=== PATIENT | female | born 1975 | race Caucasian/White ===

== ENCOUNTER 2024-12-22 13:05 | Emergency (ER) | payer MEDICAID, SELFPAY ==
[2024-12-22 13:37] VITALS: BP 111/75; PULSE 123; RESP 18; TEMP 37.2; O2SAT 97; BMI 26.8
--- NOTE | 2024-12-22 13:55 | EDNOTE_ITS ---
Upper Respiratory Inf. RME/HPI General Chief Complaint: Flu Like Symptoms Stated Complaint: BODY ACHES AND FEVER Time Seen by Provider: 12/22/24 13:37 Source: patient Arrival date/time: 12/22/24 13:05 This is a 49-year-old female who presents to the emergency department with complaints of generalized bodyaches, fever for 3 days. Patient does report she also has a mild headache with frontal pressure. Patient did not attempt any interventions or take any OTC medications prior to ED visit. Patient denies any other associated symptoms or aggravating factors. No modifying factors, no radiation, no migration. Mode of arrival: ambulatory Limitations: no limitations Related Data Previous Rx's ?Medication ?Instructions ?Recorded benzonatate 100 mg capsule 100 mg PO QID PRN cough #20 caps 07/20/18 (Jose Mooney) fexofenadine 60 mg-pseudoephedrine 1 tab PO Q12H PRN n saundra congestion 07/20/18 ER 120 mg tablet,ext.release,12 hr #20 tabs (Hayley-D 12 Hour) ibuprofen 800 mg tablet 800 mg PO TID PRN pain #30 t abs 07/20/18 nitrofurantoin 100 mg PO BID #20 caps 07/20 monohydrate/macrocrystals 100 mg capsule (Macrobid) azithromycin 250 mg tablet See Rx Instructions PO .COM PLEX #6 01/16/19 tabs prednisone 20 mg tablet 20 mg PO BID #6 tabs 9 benzonatate 100 mg capsule 100 mg PO BID PRN cough #10 caps 06/14/19 (Jose Mooney) doxycycline hyclate 100 mg tablet 100 mg PO BID #14 ta bs 06/14/19 prednisone 20 mg tablet 20 mg PO BID #6 tabs 9 ibuprofen 800 mg tablet (IBU) 800 mg PO Q8H #20 tabs 0 12/22/24 ondansetron 4 mg disintegrating 4 mg PO Q8H 3 days #9 tabs 12/22/24 tablet oseltamivir 75 mg capsule (Tamiflu) 75 mg PO BID 5 day s #10 caps 12/22/24 Allergies Allergy/AdvReac Type Severity Reaction Status Date / Time No Known Allergies Allergy Verified 12/22/24 13:08 Review of Systems Review of Systems Systems Reviewed: All systems reviewed, normal except as documented Narrative Review of Systems: Gen: + fever, no chills, no weight loss, body aches, headache EYES: No discharge, no visual changes, no pain HEENT: No ear pain, no congestion, no sore throat PULM: No shortness of breath, +cough, no congestion CV: No chest pain, no dyspnea on exertion, no palpitations GI: No nausea, no vomiting, no diarrhea, no pain, no constipation : No frequency, no urgency,? no dysuria Musc/skel: No joint pain, no back pain Skin: No rash? ED Exam General Limitations: Present no limitations General appearance: Present alert and in no apparent distress Head Head exam: Present atraumatic Eye Eye exam: Present normal appearance, PERRL and EOMI ENT ENT exam: Present normal exam, normal oropharynx and mucous membranes moist Neck Neck exam: Present normal inspection, full ROM and trachea midline Chest Chest inspection: Present normal inspection and symmetric chest wall rise Respiratory Respiratory exam: Present normal lung sounds bilaterally Cardiovascular Cardiovascular exam: Present regular rate, normal rhythm and normal heart sounds Abdominal Exam Abdominal exam: Present soft and normal bowel sounds Extremities Exam Extremities exam: Present normal inspection and full ROM Back Exam Back exam: Present normal inspection and full ROM Neurological Exam Neurological exam: Present alert, oriented X3 and CN II-XII intact Psychiatric Psychiatric exam: Present normal affect and normal mood Skin Skin exam: Present warm, dry, intact and normal color Course Quality Measures none Orders Category Date Time Status Bedside COVID-19 Antigen Test NOW Care 12/22/24 13:50 Active Bedside Influenza A&B Antigen Test NOW Care 12/22/24 13:50 Completed Vital Signs Vital signs: Vital Signs Temperature 99 F 12/22/24 13:37 Pulse Rate 123 H 12/22/24 13:37 Respiratory Rate 18 12/22/24 13:37 Blood Pressure 111/75 12/22/24 13:37 Pulse Oximetry (%) 97 12/22/24 13:37 Oxygen Delivery Method Room Air 12/22/24 13:37 Upper Respiratory Infection MDM Narrative MDM Narrative:: 45-year-old healthy male + fever, cough, sore throat, malaise consistent with viral illness such as Influenza. Positive rapid influenza test in ER. not chronically ill or immunosuppressed. History and exam I have lower suspicion for any emergent cardiopulmonary, Otolaryngeal and immunosupressing related infectious causes Given patient symptomatic, start Tamilflue 75 mg p.o. twice daily 5 days and conservative self-care and techniques to reduce spread for this suspected transient and self-resolving illness. Advised will discharge with strict return precautions. Follow up with primary care provider within 24 hours. Patient data External records reviewed:: [facility] previous records Clinical information provided by:: parent Social determinants that could affect healthcare access:: none Patient has the following chronic illnesses:: no How is presenting disease/condition affected by chronic disease/condition?: no chronic disease Evaluation data The following diagnostics were reviewed and interpreted by me:: lab results Lab and/or radiology exams considered but not ordered:: no Interpretation Summary: influenza + Medications / Prescriptions Medications or Prescriptions considered but not ordered:: no Medication administrations:: no Consultations Consultation(s) initiated? (list below): No Diagnosis Upper Respiratory Differential Diagnosis: upper respiratory infection, viral infection, bronchitis, influenza and pharyngitis Most likely diagnosis given after review of the tests above:: Influenza Admission Indicated Admission indicated?: not indicated Admission Request Was there a request for admission?: No Disposition Plan Disposition Plan: Discharge Discharge Attestation Discharge Attestation: The patient and all family members were given an opportunity to ask questions and understood the discharge instructions. Discharge instructions specifically effects, indications for sooner follow up or return to the emergency department, and the expected course of current diagnosis. Patient condition: Stable Discharge Plan Plan Patient Disposition: HOME (Self Care) Patient condition on transfer: Stable Prescriptions/Referrals Prescriptions/Med Rec: New oseltamivir [Tamiflu] 75 mg capsule 75 mg PO BID 5 Days Qty: 10 0RF ondansetron 4 mg tablet,disintegrating 4 mg PO Q8H 3 Days Qty: 9 0RF ibuprofen [IBU] 800 mg tablet 800 mg PO Q8H Qty: 20 0RF No Action ibuprofen 800 mg tablet 800 mg PO TID PRN (Reason: pain) Qty: 30 0RF benzonatate [Tessalon Perles] 100 mg capsule 100 mg PO QID PRN (Reason: cough) Qty: 20 0RF fexofenadine-pseudoephedrine [Hayley-D 12 Hour] 60-120 mg tablet extended release 12 hr 1 tab PO Q12H PRN (Reason: nasal congestion) Qty: 20 0RF nitrofurantoin monohyd/m-cryst [Macrobid] 100 mg capsule 100 mg PO BID Qty: 20 0RF Rx Instructions: must administer with a meal/food azithromycin 250 mg tablet See Rx Instructions .ROUTE .COMPLEX Qty: 6 0RF Rx Instructions: take 500 mg today (day 1), then 250 mg for 4 days (days 2-5) prednisone 20 mg tablet 20 mg PO BID Qty: 6 0RF prednisone 20 mg tablet 20 mg PO BID Qty: 6 0RF benzonatate [Tessalon Perles] 100 mg capsule 100 mg PO BID PRN (Reason: cough) Qty: 10 0RF doxycycline hyclate 100 mg tablet 100 mg PO BID Qty: 14 0RF Referrals: Sohail Garcia MD [Primary Care Provider] - In 1 week Problem List Clinical Impression: Influenza Patient/Caregiver Discharge Instructions Discharge Activity: activity as tolerated Education Materials: ED Influenza (Adult) Additional Instructions: Your rapid influenza test in clinic was positive. Start Tamiflu, antipyretics to pharmacy. 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 Please follow-up with your clinic 3-day follow-up. 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 Rodgers
--- NOTE | 2024-12-22 15:18 | PC.NURSE ---
called for pt from lobby/outside, no answerx1@[phone]
--- NOTE | 2024-12-22 15:36 | PC.NURSE ---
called for pt from lobby/outside, no answerx2@ [phone]
--- NOTE | 2024-12-22 15:55 | PC.NURSE ---
called for pt from lobby/outside, no answerx3@ [phone]
--- NOTE | 2024-12-22 16:41 | PC.NURSE ---
CALLED PT [phone] NO ANSWER
--- NOTE | 2024-12-22 16:48 | PC.NURSE ---
NA 3x. Pt. not in lobby. Called pt. on cell phone but no answer.
== END 2024-12-22 16:50 | disposition home or self-care (01) ==
PROVIDERS: Emergency Provider Emergency Medicine; PCP Family Medicine
DX: J11.1 Influenza due to unidentified influenza virus with other respiratory manifestations (principal)
CPT/HCPCS: 87400; 87811; 99283

== ENCOUNTER 2024-12-23 07:06 | Emergency (ER) | payer MEDICAID, SELFPAY ==
[2024-12-23 07:11] VITALS: BMI 27.6
[2024-12-23 07:19] VITALS: BP 108/71; PULSE 134; RESP 22; TEMP 38.8; O2SAT 98
--- NOTE | 2024-12-23 07:23 | XR_ITS ---
Examination: PA lateral chest 2 views TECHNIQUE: Upright PA lateral chest 2 views Exam date 9: December 23, 2024 0651 hours Comparison 06/14/2018 INDICATION: Coughing fever beginning 3 days ago. FINDINGS: Normal heart size. Lungs are clear. The osseous structures are intact IMPRESSION: No active disease
--- NOTE | 2024-12-23 07:24 | PD.EDRME ---
Rapid Medical Screening Exam RME Arrival date/time: 12/23/24 07:06 49-year-old female with no known medical history presents to the emergency room with a chief complaint of fever, cough, headache, dizziness x 2 days I have greeted and performed a focused initial assessment of this patient. A comprehensive ED assessment and evaluation of the patient, analysis of all test results, and completion of the medical decision making process will be conducted by additional ED providers. Chief Complaint: Fever Vital signs: Vital Signs Temperature 101.8 F H 12/23/24 07:19 Pulse Rate 134 H 12/23/24 07:19 Respiratory Rate 22 H 12/23/24 07:19 Blood Pressure 108/71 12/23/24 07:19 Pulse Oximetry (%) 98 12/23/24 07:19 Oxygen Delivery Method Room Air 12/23/24 07:19 Vital signs reviewed by provider: Yes
[2024-12-23 07:27] VITALS: TEMP 38.8
[2024-12-23] MEDS: ACETAMINOPHEN 500 MG TABLET 1000 MG PO (07:27)
[2024-12-23 07:38] LABS: Lactate (Lactic Acid) 1.3 mMol/L (0.4-2.0)
[2024-12-23 07:40] LABS: Basophils # (Auto) 0.1 Thou/mm3 (0.0-0.2); Basophils % (Auto) 1 % (0-2.5); Eosinophils # (Auto) 0.1 Thou/mm3 (0.0-0.5); Eosinophils % (Auto) 1 % (0-10); Hematocrit 39.2 % (36.0-46.0); Immature Granulocytes % (Auto) 0 % (0-0); Immature Granulocytes Auto 0.05 Thou/mm3 (0.00-0.00); Lymphocytes # (Auto) 1.5 Thou/mm3 (1.0-4.8); Lymphocytes % (Auto) 12 % (10-50); Mean Corpuscular HGB Conc 33.2 g/dl (31.0-37.0); Mean Corpuscular Hemoglobin 28.9 pg (25.0-35.0); Mean Corpuscular Volume 87 fL (80-100); Monocytes % (Auto) 8 % (0-12); Neutrophils # (Auto) 10.5 Thou/mm3 (1.8-7.7); Neutrophils % (Auto) 79 % (37-80); Nucleated Red Blood Cell % 0 /100 WBC (0); Platelet Count 310 Thou/mm3 (140-440); RDW Standard Deviation 43.2 fL (36.4-46.3); White Blood Count 13.2 Thou/mm3 (3.6-11.0)
--- NOTE | 2024-12-23 08:05 | PD.EDADULT ---
ED General RME/HPI General Chief complaint: Fever Stated complaint: FEVER, BODY ACHES, MORRELL X 4-5 DAYS Time Seen by Provider: 12/23/24 08:02 Arrival date/time: 12/23/24 07:06 RME / HPI RME / HPI narrative: DR. MCKEON MAIN ED EVALUATION: 49-year-old female states she has a history of fever for 4 days including body aches headache and generalized malaise. There is no sore throat she is not vomiting having diarrhea. She has no shortness of breath. She does complain of a benign mass on her left supraclavicular area that is been there for 10 years and now states that that is causing pain to radiate up her left side into her neck. Related Data Previous Rx's ?Medication ?Instructions ?Recorded benzonatate 100 mg capsule 100 mg PO QID PRN cough #20 caps 07/20/18 (Jose Mooney) fexofenadine 60 mg-pseudoephedrine 1 tab PO Q12H PRN nasal congestion 07/20/18 ER 120 mg tablet,ext.release,12 hr #20 tabs (Hayley-D 12 Hour) ibuprofen 800 mg tablet 800 mg PO TID PRN pain #30 tabs 07/20/18 nitrofurantoin 100 mg PO BID #20 caps 07/20/18 monohydrate/macrocrystals 100 mg capsule (Macrobid) azithromycin 250 mg tablet See Rx Instructions PO .COMPLEX #6 01/16/19 tabs prednisone 20 mg tablet 20 mg PO BID #6 tabs 01/16/19 benzonatate 100 mg capsule 100 mg PO BID PRN cough #10 caps 06/14/19 (Jose Mooney) doxycycline hyclate 100 mg tablet 100 mg PO BID #14 tabs 06/14/19 prednisone 20 mg tablet 20 mg PO BID #6 tabs 06/14/19 ibuprofen 800 mg tablet (IBU) 800 mg PO Q8H #20 tabs 12/22/24 ondansetron 4 mg disintegrating 4 mg PO Q8H 3 days #9 tabs 12/22/24 tablet oseltamivir 75 mg capsule (Tamiflu) 75 mg PO BID 5 days #10 caps 12/22/24 Allergies Allergy/AdvReac Type Severity Reaction Status Date / Time No Known Allergies Allergy Verified 12/23/24 07:11 Review of Systems Review of Systems Systems Reviewed: All systems reviewed, normal except as documented Narrative Review of Systems: Constitutional: POSITIVES: fevers, generalized malaise Eyes: DENIES: loss of vision; Head/Ear/Nose: DENIES: loss of hearing. Throat: DENIES: dysphagia. Cardiovascular: DENIES: chest pain, dyspnea, or syncope. Respiratory: DENIES: shortness of breath; Gastrointestinal: DENIES: rectal bleeding or melena. Genitourinary: DENIES: dysuria (painful or difficult urination); Musculoskeletal: POSITIVES: body aches Skin: DENIES: rash; Neurological: POSITIVES: headache DENIES: loss of function or movement; Psychiatric: DENIES: recent major life stressor, emotional problem, illicit drug use or abuse; Endocrinology: DENIES: weight change,; Hematologic/Lymphatic: DENIES: abnormal bruising. Allergic/Immunologic: DENIES: urticaria (hives). Past Medical History Past Medical History NEUROLOGIC: Negative Neurological Disorders CARDIAC: Negative Cardiac Disorders or Congestive Heart Failure RESPIRATORY: Negative Respiratory Disorders or Chronic Obstructive Pulmonary Disease (COPD) GASTROINTESTINAL: Positive Gastrointestinal Disorders and Gall Bladder Disease GENITOURINARY: Negative Genitourinary Disorders or Renal Disease REPRODUCTIVE: Positive Previous Pregnancies MUSCULOSKELETAL: Negative Musculoskeletal Disorders ENT: Negative History of ENT Problems ENDOCRINE: Negative Endocrine Disorders, Diabetes Mellitus Type 1 or Diabetes Mellitus Type 2 OTHER HISTORY: Positive Blood Transfusions; Negative Blood Transfusion Reaction, Anesthesia Reactions or Cancer Family History FAMILY HISTORY: Positive Family Cancer Surgical History SURGICAL: Positive Abdominal Surgery and Section; Negative Cardiac Surgery, Endocrine Surgery, Thyroidectomy, Ear Surgery, Eye Surgery or Nose Surgery Social History SMOKING STATUS: Current every day smoker SUBSTANCE USE: does not use ALCOHOL: Never ED Exam Narrative Physical exam: Physical Exam: General: The vital signs were reviewed. The patient is non-toxic, in no apparent distress and appears healthy with a patent airway, no respiratory distress and has no apparent circulatory problems. Head & Scalp: Normocephalic, atraumatic. Face: Appears normal and is without lesions, deformity. Ears: Left external pinna appears normal. Right external pinna appears normal. Eyes: The sclera is anicteric. No obvious photophobia. The Left and Right Orbit/Lid/Conjunctiva appears normal without swelling, discoloration or injection. Nose: The nose is without deformity, discharge or tenderness; Throat: Appears normal. The mucous membranes are pink and moist without exudates, redness or mass seen. The tongue appears normal. Neck: The neck is supple and no apparent mass or adenopathy. Note the left supraclavicular area has a three 4 cm mass that feels like a lipoma. This is the lesion she refers to has been there for 10 years and states that she feels or thinks pain is rating from this into her neck or head. Note there is no redness there is no disruption of the skin and the lesion is nontender. Chest: The chest wall is normal in size and symmetry and has no chest wall tenderness or crepitus. The patient displays normal ventilator effort without retractions, accessory muscle use and has adequate air movement bilaterally with no wheezes and no rales. Cardiovascular: Regular rate and rhythm; No murmurs, rubs, or gallops; Gastrointestinal: The abdomen appears normal. No obvious hernias or mass. The abdomen is soft and benign, non-distended, with no pain, no guarding and no rebound tenderness. Bowel sounds are present and normal sounding. No CVA tenderness. Genitourinary: Back/Spine: Nontender no CVA tenderness. Extremities/Musculoskeletal/lymphatic: The bilateral upper and lower extremities are warm. There is no evidence of arterial insufficiency. There is no evidence of venous insufficiency/edema. The patient spontaneously moves bilateral upper and lower extremities with no pain and no limitation of movement. There is no apparent, injury or trauma. Skin: The skin is warm, dry and intact. No rashes. No petechia. No purpura. No abnormal bruising. The color is appropriate with no cyanosis. Mental status/Psychiatric: Mental status is appropriate for age. The patient has no apparent delusions, visual hallucinations, no apparent audible hallucinations. The patient has no apparent suicidal thoughts/ideation and no apparent homicidal thoughts/ideation. Neurological: The patient is awake, alert, interactive, cordial, cooperative and is oriented to name and situation. The patient follows commands and answers historical question with no impairment. There is no visual disturbance apparent. The pupils are equal and reactive bilaterally with normal eye movements and no diplopia The bilateral upper and lower extremities have normal strength, normal range of motion and normal functioning. The gait, station and balance appear to be baseline with no acute change Course Quality Measures none Orders Category Date Time Status Bedside COVID-19 Antigen Test NOW Care 12/23/24 07:23 Active Bedside Influenza A&B Antigen Test NOW Care 12/23/24 07:[address] Screening NOW Care 12/23/24 11:[address] chest abdomen pelvis w Stat Exams 12/23/24 11:43 Ordered XR chest 2V Stat Exams 12/23/24 07:23 Completed Blood Culture (Lab) Stat Lab 12/23/24 07:20 Received CBC Stat Lab 12/23/24 07:25 Completed CMP [Comprehensive Metabolic Panel] Stat Lab 12/23/24 07:25 Completed Lactate (Lactic Acid) Stat Lab 12/23/24 07:25 Completed Procalcitonin Stat Lab 12/23/24 07:25 Completed UA [Urinalysis] Stat Lab 12/23/24 08:05 Completed Urine Culture Stat Lab 12/23/24 08:05 Received Acetaminophen Tab [Tylenol ES Tab] Med 12/23/24 07:23 Discontinued 1,000 mg PO X1 ONE Ringers Lactated 1000 ml [Lactated Ringers] 1,000 ml Med 12/23/24 11:43 Discontinued IV 999 mls/hr Vital Signs Vital signs: Vital Signs Temperature 101.8 F H 12/23/24 07:19 Pulse Rate 134 H 12/23/24 07:19 Respiratory Rate 22 H 12/23/24 07:19 Blood Pressure 108/71 12/23/24 07:19 Pulse Oximetry (%) 98 12/23/24 07:19 Oxygen Delivery Method Room Air 12/23/24 07:19 [facility] Patient data External records reviewed:: [facility] previous records (Reviewed last ED visit dated 12/22/24, discharged with the following: Influenza) Clinical information provided by:: patient Social determinants that could affect healthcare access:: none Patient has the following chronic illnesses:: No known past medical history. How is presenting disease/condition affected by chronic disease/condition?: no chronic disease Evaluation data The following diagnostics were reviewed and interpreted by me:: lab results and radiology exam(s) Lab and/or radiology exams considered but not ordered:: none Interpretation Summary: See above under MDM narrative. RADIOLOGY Procedure(s): XR chest 2V Accession Number(s): [id number] cc: Earl Becker; Isaiah Adams MD~ Examination: PA lateral chest 2 views TECHNIQUE: Upright PA lateral chest 2 views Exam date : December 23, 2024 0651 hours Comparison 06/14/2018 INDICATION: Coughing fever beginning 3 days ago. FINDINGS: Normal heart size. Lungs are clear. The osseous structures are intact IMPRESSION: No active disease Dictated By: Isaiah Adams MD Medications Medications considered but not ordered:: none Medication administrations:: Medication Administration History Discontinued Medications Acetaminophen (Acetaminophen 500 Mg Tablet) 1,000 mg PO X1 ONE Stop: 12/23/24 07:24 Last Admin: 12/23/24 07:27 Dose: 1,000 mg Documented By: SERGIO Lactated Ringer's (Lactated Ringers) 1,000 mls @ 999 mls/hr IV .Q1H1M ONE Stop: 12/23/24 12:43 Last Admin: 12/23/24 13:18 Dose: Not Given Documented By: LESA Non-Admin Reason: Pt refused. Left AMA see above Consultations Consultation(s) initiated? (list below): No Diagnosis Differential Diagnosis ED Complaint MDM: URI, sepsis, influenza, COVID Most likely diagnosis given after review of the tests above:: See below Admission Indicated Admission indicated?: not indicated Explain why admission is indicated or not indicated:: Patient left AMA Admission Request Was there a request for admission?: No Disposition Plan Disposition Plan: other (specify) (Left AMA) Medical Decision Making MDM Narrative MDM Narrative: Patient presents with most likely some type of viral illness with bodyaches fever headache for 4 days now. Note this little different than that original history taken by the ALEXANDR upfront. Medical workup for sepsis was initiated and will reevaluate the patient after the workup is complete. Reevaluation at 1130 hrs. shows the patient to be alert awake she reports her fevers coming back and she also states that this mass in her upper chest is causing pain in her head and neck even though the spot she is pointing lactic acid dehydrogenase lateral to midclavicular line area just inferior to the clavicle. Medical workup so far reveals a chest x-ray which reveals no acute pneumonia, there is no infiltrates no effusion. Catheter urine specimen came back with a specific gravity of 1027 with 20 squames 31 white cells and 16 red cells of courses of uncertain quality and patient has no urinary symptoms. Procalcitonin came back at 0.35 normal. Transaminases are slightly elevated at 152 and 226 with a total bilirubin of 0.2. Lactic acid came back 1.3 unlikely to be septic. Glucose is 123 BUN 13 creatinine 1.0 electrolytes are essentially negative with a sodium 137 potassium 4.5 chloride 103 CO2 27 white count came back elevated at 13.2 hemoglobin of 13.0 and platelet count of 310,000. At this point patient presents with a upper respiratory viral illness with cough congestion myalgias and bodyaches that she is got this superficial mass seems a little lateral for the usual area where he have adenopathy. And patient states this has been there for 10 years but all of a sudden is getting worse or bigger in the last 6 months. Since I do not have a source for the fever or influenza COVID and RSV were all negative I am going to scan the chest to make sure she does not have some neoplastic process that is faking this out. Also the patient's blood pressure is in the 88 range give her a liter of fluid while awaiting. Clinically patient does not look critically ill and appears unchanged since my original evaluation with this update being at 1150 hrs. After further review of the chart patient forgot to tell me she was here yesterday had a workup for and was found to have influenza positive a. Though her swab today is negative this is not unexpected as sampling variation is exist. So this is the most likely diagnosis. She is still worried about the mass on her chest and so we will continue with the scan her blood pressure is 88 to her given her liter of fluid as she admits she has not been drinking or eating much Evidently patient decided to leave AMA and signed out without informing me. CT was not done. Note patient had an obvious reason for her weakness and symptoms with the influenza A positive yesterday even though this Walp today was negative. Henrietta Brown, am scribing for and in the presence of Dr. Mckeon. Differential Diagnosis Differential Diagnosis: URI, sepsis, influenza, COVID Lab Data 12/23/24 07:25 12/23/24 07:25 Labs: Lab Results 12/23/24 12/23/24 Range/Units 07:25 08:05 WBC 13.2 H (3.6-11.0) Thou/mm3 RBC 4.50 (4.00-5.20) Miln/mm3 Hgb 13.0 (12.0-16.0) g/dL Hct 39.2 (36.0-46.0) % MCV 87 (80-100) fL MCH 28.9 (25.0-35.0) pg MCHC 33.2 (31.0-37.0) g/dl RDW Std Deviation 43.2 (36.4-46.3) fL Plt Count 310 (140-440) Thou/mm3 Neut % (Auto) 79 (37-80) % Lymph % (Auto) 12 (10-50) % Patrick % (Auto) 8 (0-12) % Eos % (Auto) 1 (0-10) % Baso % (Auto) 1 (0-2.5) % Neut # (Auto) 10.5 H (1.8-7.7) Thou/mm3 Lymph # (Auto) 1.5 (1.0-4.8) Thou/mm3 Patrick # (Auto) 1.0 H (0.0-0.8) Thou/mm3 Eos # (Auto) 0.1 (0.0-0.5) Thou/mm3 Baso # (Auto) 0.1 (0.0-0.2) Thou/mm3 Immature Gran # (Auto) 0.05 H (0.00-0.00) Thou/mm3 Absolute Nucleated RBC 0.00 (0.00-0.00) Thou/mm3 Immature Gran % 0 (0-0) % Nucleated RBC % 0 (0) /100 WBC Sodium 135 L (136-145) mMol/L Potassium 4.5 (3.4-5.1) mMol/L Chloride 103 (98-107) mMol/L Carbon Dioxide 26.8 (20.0-31.0) mMol/L Anion Gap 5 L (7-16) BUN 13 (9-23) mg/dL Creatinine 1.0 (0.6-1.3) mg/dL Estim Creat Clear Calc 68.1 (>60) mL/min eGFR > 60 (60 - ) See Note BUN/Creatinine Ratio 13 (12-20) Ratio Glucose 123 H (74-106) mg/dL Calculated Osmolality 271 L (275-295) Lactic Acid 1.3 (0.4-2.0) mMol/L Calcium 9.9 (8.3-10.6) mg/dL Corrected Calcium 9.9 (8.5-10.1) mg/dL Total Bilirubin 0.2 L (0.3-1.2) mg/dL AST 152 H (0-34) U/L ALT 226 H (10-49) U/L Alkaline Phosphatase 120 H (46-116) U/L Total Protein 7.0 (5.7-8.2) gm/dL Albumin 4.2 (3.5-5.0) gm/dL Globulin 2.8 (2.3-3.5) gm/dL Albumin/Globulin Ratio 1.5 (1.2-2.2) Procalcitonin 0.35 (0.0-0.49) ng/ml Ur Collection Type Clean Catch Urine Color Yellow (Lt Yel-Yel) Urine Clarity Turbid A (Clear/Hazy) Urine pH 6.0 (5.0-7.0) Ur Specific [place] 1.027 (1.001-1.035) Urine Protein 1+ A (Neg - Trace) Urine Glucose (UA) Negative (Negative) Urine Ketones Negative (Negative) Urine Blood 2+ A (Negative) Urine Nitrite Positive (Negative) Urine Bilirubin Negative (Negative) Urine Urobilinogen (Auto) Negative (0.0-1.0) mg/dL Ur Leukocyte Esterase Positive (Negative) Urine RBC 16 H (0-3) /hpf Urine WBC 31 H (0-5) /hpf Ur Squamous Epith Cells 20 H (0-5) /hpf Ur Transition Epith Cell < 1 (0-5) /hpf Urine Bacteria 1+ A (None) Discharge Plan Plan Patient Disposition: Left Against Medical Advice Prescriptions/Referrals Prescriptions/Med Rec: No Action ibuprofen 800 mg tablet 800 mg PO TID PRN (Reason: pain) Qty: 30 0RF benzonatate [Tessalon Perles] 100 mg capsule 100 mg PO QID PRN (Reason: cough) Qty: 20 0RF fexofenadine-pseudoephedrine [Hayley-D 12 Hour] 60-120 mg tablet extended release 12 hr 1 tab PO Q12H PRN (Reason: nasal congestion) Qty: 20 0RF nitrofurantoin monohyd/m-cryst [Macrobid] 100 mg capsule 100 mg PO BID Qty: 20 0RF Rx Instructions: must administer with a meal/food azithromycin 250 mg tablet See Rx Instructions .ROUTE .COMPLEX Qty: 6 0RF Rx Instructions: take 500 mg today (day 1), then 250 mg for 4 days (days 2-5) prednisone 20 mg tablet 20 mg PO BID Qty: 6 0RF prednisone 20 mg tablet 20 mg PO BID Qty: 6 0RF benzonatate [Tessalon Perles] 100 mg capsule 100 mg PO BID PRN (Reason: cough) Qty: 10 0RF doxycycline hyclate 100 mg tablet 100 mg PO BID Qty: 14 0RF oseltamivir [Tamiflu] 75 mg capsule 75 mg PO BID 5 Days Qty: 10 0RF ondansetron 4 mg tablet,disintegrating 4 mg PO Q8H 3 Days Qty: 9 0RF ibuprofen [IBU] 800 mg tablet 800 mg PO Q8H Qty: 20 0RF Referrals: Sohail Garcia MD [Primary Care Provider] - In 1 week Problem List Clinical Impression: Influenza, Hypotension, Dehydration, Mass of chest wall, left, Left against medical advice Patient/Caregiver Discharge Instructions Print Language: Serbian
[2024-12-23 08:06] LABS: Alanine Aminotransferase 226 U/L (10-49); Albumin, Serum 4.2 gm/dL (3.5-5.0); Albumin/Globulin Ratio 1.5 (1.2-2.2); Alkaline Phosphatase 120 U/L (46-116); Anion Gap 5 (7-16); Aspartate Amino Transferase 152 U/L (0-34); BUN/Creatinine Ratio 13 Ratio (12-20); Bilirubin,Total 0.2 mg/dL (0.3-1.2); Blood Urea Nitrogen 13 mg/dL (9-23); Calcium 9.9 mg/dL (8.3-10.6); Calcium (Corrected) 9.9 mg/dL (8.5-10.1); Carbon Dioxide 26.8 mMol/L (20.0-31.0); Chloride 103 mMol/L (98-107); Estimated Creatinine Clearance 68.1 mL/min (>60); Globulin 2.8 gm/dL (2.3-3.5); Glucose 123 mg/dL (74-106); Osmolality,Calculated 271 (275-295); Potassium 4.5 mMol/L (3.4-5.1); Procalcitonin 0.35 ng/ml (0.0-0.49); Sodium 135 mMol/L (136-145); eGFR > 60 See Note
[2024-12-23 08:32] LABS: Collection Type, Urine Clean Catch
[2024-12-23 08:34] VITALS: TEMP 38.1
[2024-12-23 09:01] LABS: Bacteria,Urine 1+; Bilirubin,Urine Negative (Negative); Blood,Urine 2+ (Negative); Clarity,Urine Turbid (Clear/Hazy); Color,Urine Yellow (Lt Yel-Yel); Glucose, Urine Negative (Negative); Ketones,Urine Negative (Negative); Leukocyte Esterase,Urine Positive (Negative); Nitrite,Urine Positive (Negative); Protein,Urine 1+ (Neg - Trace); RBC,Urine 16 /hpf (0-3); Specific Gravity,Urine 1.027 (1.001-1.035); Squamous Epithelial Cell,Urine 20 /hpf (0-5); Transitional Epi Cells,Urine < 1 /hpf (0-5); Urobilinogen,Urine Negative mg/dL (0.0-1.0); WBC,Urine 31 /hpf (0-5)
[2024-12-23 10:46] VITALS: BP 98/60; PULSE 103; RESP 22; TEMP 38.1; O2SAT 97
[2024-12-23 11:45] VITALS: TEMP 38.5
--- NOTE | 2024-12-23 12:41 | PC.NURSE ---
Per patient wants to leave does not feel comfortable staying and waiting at this facility due to receiving conflicting results of flu/urine. Patient wants to receive care at another facility at this time. Patient was given AMA form to sign and per patient is heading to other facility for care. AMA form signed and patient encouraged to return if symptoms continue to worsen. Patient verbalizes understanding of all instructions.
== END 2024-12-23 13:20 | disposition left against medical advice (07) ==
PROVIDERS: Nurse Practitioner Family; Emergency Provider Emergency Medicine; PCP Family Medicine
DX: J11.1 Influenza due to unidentified influenza virus with other respiratory manifestations (principal); E86.0 Dehydration; Z53.29 Procedure and treatment not carried out because of patient's decision for other reasons; I95.9 Hypotension, unspecified; R22.2 Localized swelling, mass and lump, trunk
CPT/HCPCS: 36415; 71046; 80053; 81001; 83605; 84145; 85025; 87040; 87077; 87086; 87186; 87400; 87811; 99283; A9270